=== PATIENT | male | born 1975 | race Caucasian/White ===

== ENCOUNTER 2017-09-09 11:39 | Observation (INO) | payer OTHER ==
--- NOTE | 2017-09-09 11:57 | EDPHY ---
H & P Smoking Status: Never smoked Time Seen by Provider: 09/09/17 11:39 HPI/ROS: CHIEF COMPLAINT: Near-syncope HISTORY OF PRESENT ILLNESS: 42-year-old male presents to the emergency department by ambulance after having a near syncopal episode with exertion. The patient states that he was hiking with a friend and was extremely short of breath, more so that he thought he should be with the type of exercise. He told his friend and they turned around and came back to the car. He then had a near syncopal episode. He states "I was fighting really hard for about 10 min to stay awake."He has no associated pain in his chest. He does not feel short of breath. He has a known history of an irregular tricuspid valve and was told when he was about age 52 that he would require surgery on his tricuspid valve. He denies a headache. No other reported trauma. REVIEW OF SYSTEMS: Constitutional: No fever, no chills. Eyes: No double or blurry vision. ENT: No sore throat. Respiratory: No cough, no shortness of breath. Cardiac: No chest pain. Gastrointestinal: No abdominal pain, vomiting or diarrhea. Genitourinary: No dysuria. Musculoskeletal: No neck or back pain. Skin: No rashes. Neurological: No headache. (Mahnaz Addison) Past Medical/Surgical History: Abnormal tricuspid valve (Mahnaz Addison) Social History: Lives in [place] (Mahnaz Addison) Physical Exam: General Appearance: Alert, no distress. 129/77. Heart rate 54, 100% on room air. Eyes: Pupils equal and round. Extraocular motions are all intact. ENT: Mouth: Mucous membranes moist. Respiratory: No wheezing, rhonchi, or rales, lungs are clear to auscultation. Cardiovascular: Regular rate and rhythm. Bradycardic. Gastrointestinal: Abdomen is soft and nontender, no masses, no rebound or guarding, bowel sounds normal. Neurological: Alert and oriented x 3, cranial nerves II through XII grossly intact Skin: Warm and dry, no rashes. Musculoskeletal: Nontender to palpate along the cervical, thoracic or lumbar spine. Neck is supple. Extremities: Full range of motion and no peripheral edema. Psychiatric: Patient is oriented X 3, there is no agitation. (Mahnaz Addison) Constitutional: Initial Vital Signs Temperature (C) 36.4 C 09/09/17 11:54 Heart Rate 54 L 09/09/17 11:54 Respiratory Rate 16 09/09/17 11:54 Blood Pressure 129/77 H 09/09/17 11:54 O2 Sat (%) 100 09/09/17 11:54 O2 Delivery Mode Room Air Allergies/Adverse Reactions: cat dander Allergy (Verified 09/09/17 15:08) mold Allergy (Verified 09/09/17 15:08) peanut Allergy (Verified 09/09/17 15:08) Home Medications: Medication Instructions Recorded Ascorbic Acid [Vitamin C 500 mg 1,000 mg PO DAILY 09/09/17 (*)] Cholecalciferol Vit D3 [Vitamin D3 1,000 units PO MOTH 09/09/17 (*)] Herbals/Supplements -Info Only 1 ea PO DAILY 09/09/17 Vitamin B Complex [Vitamin B 1 each PO DAILY 09/09/17 Complex (OTC)] Metoprolol Succinate [Toprol Xl] 12.5 mg PO DAILY #30 tab.er.24h 09/10/17 Medical Decision Making - Diagnostics Imaging: Discussed imaging studies w/ order desk caller Radiologist - Diagnostics EKG Interpretation: EKG interpreted by me shows sinus bradycardia with normal interval and axis. QRS is normal there is no significant ST elevation or depression. There appears to be a PAC present. Rate is 48 (Rik Chew) Imaging Results: CT angiogram of the chest reveals no evidence of PE. This was reported to me by Dr. Tawanda Patel at 4:25 p.m.. (Mahnaz Addison) ED Course/Re-evaluation: 42-year-old male presents to the emergency department after having a near syncopal episode. Laboratory studies were unremarkable. Troponin was normal. The case was discussed with Dr. Rik Chew, secondary supervising physician, who did not directly evaluate the patient but agrees with treatment and plan. The patient was monitored in the emergency department for several hours. He had an echocardiogram which revealed bicuspid tricuspid valve with mild to moderate aortic insufficiency. This was reported to me by Dr. Joshua Hutchinson, on- call pbx teacher. The patient was kept on patient monitor. He ambulated throughout the emergency department and his heart rate was labile from 70s up to 90s. His O2 saturation remained in 90s. The patient was short of breath with exertional activities and had a near syncopal episode. CT pulmonary angiogram which revealed no evidence of pulmonary embolism. I recommended admission to the hospital after having a near syncopal episode with exertional activity. The patient will be admitted to Dr. Vimal Osborne. (Mahnaz Addison) I did not see this patient while he was in the emergency department. However his care was discussed with the PA while the patient was in the department. I agree with treatment plan and management (Rik Chew) Differential Diagnosis: Shortness of breath including but not limited to pulmonary infectious process, COPD, asthma, pulmonary embolus and congestive heart failure. (Mahnaz Addison) - Data Points Laboratory Results: Laboratory Results 09/09/17 12:12 09/09/17 12:12 Departure - Departure Disposition: [facility] Inpatient Acute Clinical Impression: Near syncope Condition: Good
--- NOTE | 2017-09-09 12:04 | CPEKG ---
Heart Rate: 48 RR Interval: 1250 P-R Interval: 180 QRSD Interval: 98 QT Interval: 440 QTC Interval: 394 P Roslyn: 63 QRS Roslyn: 63 T Wave Roslyn: 51 EKG Severity - BORDERLINE ECG - EKG Impression: BRADYCARDIA WITH IRREGULAR RATE 41-62 Electronically Signed By: Rik Chew 09-Sep-2017 14:26:15
[2017-09-09 12:15] LABS: PLATELET COUNT 288 10^3/uL (150-400)
--- NOTE | 2017-09-09 15:16 | ECHO ---
[email or web address] [address] [address] Main: [phone] Fax: [email or web address] Echocardiogram Name: MITRA PIPER MR#: [id number] Study Date: 09/09/2017 Study Time: 02:24 PM Date of : 1975 Age: 42 year(s) Height: 190.5 cm (75 in.) Weight: 77.11 kg (170 lb.) BSA: 2.05 m2 Gender: Male Examination: Echo Indication: near syncope sith exertion Image Quality: Contrast: Requested by: Mahnaz Addison BP: / Heart Rate: Rhythm: Indication: near syncope sith exertion Procedure Staff Sap Specialist: Mahnaz Orourke [facility] Reading Physician: Joshua Hutchinson MD Requesting Provider: Conclusions: Normal size left ventricle. Normal global systolic LV function. EF is 63 %. No regional wall motion abnormality. Normal RV function. Bicuspid aortic valve. Mild to moderate aortic valve regurgitation. No aortic valve stenosis is present. The aorta is normal. Mildly dilated aortic root measuring 4.2 cm. There is no previous echocardiogram for comparison. Measurements: Chambers Valvular Assessment AV/MV Valvular Assessment TV/PV Normal Normal Normal Name Value Range Name Value Range Name Value Range Ao Aline (MM): 4.2 cm (2.2 cm-3.7 AV Vmax: 1.62 m/s (1 m/s-1.7 TR Vmax: 2.16 mm/s ( - ) cm) m/s) TR PGmax: 19 mmHg ( - ) IVSd (2D): 0.9 cm (0.6 cm-1.1 AV maxP mmHg ( - ) syst. PAP: 24 mmHg ( - ) cm) LVOT Vmax: 0.88 m/s (0.7 m/s-1.1 PV Vmax: 1.43 m/s (0.6 m/s-0.9 LVDd (2D): 4.9 cm (4.2 cm-5.9 m/s) m/s) cm) ЮЛИЯ (Vmax): 2.7 cm2 ( - ) PV PGmax: 8 mmHg ( - ) LVDs (2D): 3.3 cm (2.1 cm-4 AR (PHT): 579 ms ( - ) cm) MV E Vmax: 0.69 m/s ( - ) LVPWd (2D): 1.0 cm (0.6 cm-1 MV A Vmax: 0.42 m/s ( - ) cm) MV E/A: 1.64 ( - ) LVOTd 2.5 cm 2.5 cm mm LVEF (BP): 63 % (>=55 %) RVDd(2D): 3.2 cm (1.9 cm-3.8 cmmm) Patient: MITRA PIPER Study Date: 09/09/2017 Page 1 of 2 02:24 PM Continued Measurements: Chambers Valvular Assessment AV/MV Valvular Assessment TV/PV Name Value Name Value Name Value LADs Lon.2 cm MV DecTime: 176 m/s CVP (est.): 5 mmHg LA Area: 11.1 cm2 MV E' Septal: 0.11 m/s LA Volume: 20 ml MV E/E' Septal: 6.10 LA Volume Index: 9.8 ml/m2 MV E/E' Lateral: 5.40 AR Vmax: 4.11 cm/s Findings: Left Ventricle: Normal size left ventricle. No LV hypertrophy. Normal global systolic LV function. EF is 63 %. No regional wall motion abnormality. Normal diastolic LV function. Right Ventricle: Normal size right ventricle. Normal RV function. Left Atrium: The left atrium is normal in size. Right Atrium: The right atrium is normal in size. Mitral Valve: The mitral valve is normal in appearance and function. There is no mitral valve regurgitation. No mitral stenosis is present. Aortic Valve: Bicuspid aortic valve. Mild to moderate aortic valve regurgitation. No aortic valve stenosis is present. Tricuspid Valve: The tricuspid valve is normal in appearance and function. Trivial tricuspid valve regurgitation. Right ventricular systolic pressure measures 24mmHg. The pulmonary artery pressure is normal. Pulmonic Valve: The pulmonic valve is normal in appearance and function. There is no pulmonic regurgitation seen. Aorta: The aorta is normal. Mildly dilated aortic root measuring 4.2 cm. IVC: The IVC is normal sized. Pericardium: No pericardial effusion. (No Signature Object) Patient: MITRA PIPER Study Date: 09/09/2017 Page 2 of 2 02:24 PM [id number]
[2017-09-09] MEDS ORDERED: IOPAMIDOL (ISOVUE 370) 100 ML BTL IV ONE (15:59)
[2017-09-09] MEDS ORDERED: ONDANSETRON 4 MG/2 ML VIAL IVP PRN (16:07)
[2017-09-09] MEDS ORDERED: HYDROCODONE/APAP 5/325 TAB PO PRN (16:07)
[2017-09-09] MEDS ORDERED: ONDANSETRON DISINTEGRATING 4 MG TAB PO PRN (16:07)
[2017-09-09] MEDS ORDERED: ACETAMINOPHEN 325 MG TAB PO PRN (16:07)
--- NOTE | 2017-09-09 19:33 | PDGENHP ---
History and Physical - Chief Complaint near syncope - History of Present Illness 42 yo M with no real PMH presenting with c/o near syncope following a vigorous hike. He notes that he completed the hike without difficulty, but shortly thereafter developed diaphoresis, tunnel vision, ringing in his ears and the sense that he was going to lose consciousness. He states it took everything he had in him to not pass out. He denies associated chest pain or palpitations, he had no sob or nausea. He states after about 7-[address] way, he then developed associated tingling in his bilateral hands. This episode lasted approximately 15 minutes. He had a similar episode about 20 years ago but at that time he did syncope--he underwent testing at the hospital following that episode including echocardiogram and was found to have a bicuspid aortic valve but no other issues. In the ER it was noted that his heart rate was quite variable, ranging from 40 to the mid 70s. He states his usual resting heart rate is 40-50. Due to the significant variability it was recommended to him that he stay for further testing. He denies any symptoms with the change in heart rate. History Information - Allergies/Home Medication List Allergies/Adverse Reactions: cat dander Allergy (Verified 09/09/17 15:08) mold Allergy (Verified 09/09/17 15:08) peanut Allergy (Verified 09/09/17 15:08) Home Medications: Ascorbic Acid [Vitamin C 500 mg (*)] 1,000 mg PO DAILY 09/09/17 [Last Taken 12/20] Cholecalciferol Vit D3 [Vitamin D3 (*)] 1,000 units PO MOTH 09/09/17 [Last Taken 09/07/17] Herbals/Supplements -Info Only 1 ea PO DAILY 09/09/17 [Last Taken Unknown] Vitamin B Complex [Vitamin B Complex (OTC)] 1 each PO DAILY 09/09/17 [Last Taken 09/09/17] I have personally reviewed and updated: family history, medical history, social history, surgical history - Past Medical History no pertinent PMH - Surgical History Additional surgical history: wisdom tooth removal. lasik surgery - Family History Positive for: CAD (maternal grandfather in his 60s) - Social History Smoking Status: Never smoked Alcohol Use: Rarely Drug Use: None Review of Systems Review of Systems: ROS: 10pt was reviewed & negative except for what was stated in HPI & below Physical Exam Physical Exam: Temp Pulse Resp BP Pulse Ox 36.4 C 45 L 17 106/72 91 L 09/09/17 17:43 09/09/17 18:31 09/09/17 17:43 09/09/17 18:31 09/09/17 17:43 Constitutional: no apparent distress, appears nourished, not in pain Eyes: PERRL, anicteric sclera Ears, Nose, Mouth, Throat: moist mucous membranes Cardiovascular: regular rate and rhythym, no murmur, rub, or gallop, No edema Respiratory: no respiratory distress, no rales or rhonchi, clear to auscultation Gastrointestinal: normoactive bowel sounds Skin: warm, normal color Musculoskeletal: full muscle strength Neurologic: AAOx3 Psychiatric: interacting appropriately, not anxious, not encephalopathic Lab Data & Imaging Review 09/09/17 12:12 09/09/17 12:12 WBC 7.25 10^3/uL (3.80-9.50) 09/09/17 12:12 RBC 5.27 10^6/uL (4.40-6.38) 09/09/17 12:12 Hgb 16.0 g/dL (13.7-17.5) 09/09/17 12:12 Hct 45.9 % (40.0-51.0) 09/09/17 12:12 MCV 87.1 fL (81.5-99.8) 09/09/17 12:12 MCH 30.4 pg (27.9-34.1) 09/09/17 12:12 MCHC 34.9 g/dL (32.4-36.7) 09/09/17 12:12 RDW 12.0 % (11.5-15.2) 09/09/17 12:12 Plt Count 288 10^3/uL (150-400) 09/09/17 12:12 MPV 10.9 fL (8.7-11.7) 09/09/17 12:12 Neut % (Auto) 42.7 % (39.3-74.2) 09/09/17 12:12 Lymph % (Auto) 43.0 % (15.0-45.0) 09/09/17 12:12 [place] % (Auto) 5.4 % (4.5-13.0) 09/09/17 12:12 Eos % (Auto) 7.4 % (0.6-7.6) 09/09/17 12:12 Baso % (Auto) 1.2 % (0.3-1.7) 09/09/17 12:12 Nucleat RBC Rel Count 0.0 % (0.0-0.2) 09/09/17 12:12 Absolute Neuts (auto) 3.09 10^3/uL (1.70-6.50) 09/09/17 12:12 Absolute Lymphs (auto) 3.12 10^3/uL (1.00-3.00) H 09/09/17 12:12 Absolute Monos (auto) 0.39 10^3/uL (0.30-0.80) 09/09/17 12:12 Absolute Eos (auto) 0.54 10^3/uL (0.03-0.40) H 09/09/17 12:12 Absolute Basos (auto) 0.09 10^3/uL (0.02-0.10) 09/09/17 12:12 Absolute Nucleated RBC 0.00 10^3/uL (0-0.01) 09/09/17 12:12 Immature Gran % 0.3 % (0.0-1.1) 09/09/17 12:12 Immature Gran # 0.02 10^3/uL (0.00-0.10) 09/09/17 12:12 Sodium 146 mEq/L (135-145) H 09/09/17 12:12 Potassium 4.1 mEq/L (3.5-5.2) 09/09/17 12:12 Chloride 100 mEq/L (97-110) 09/09/17 12:12 Carbon Dioxide 26 mEq/l (22-31) 09/09/17 12:12 Anion Gap 20 mEq/L (8-16) H 09/09/17 12:12 BUN 14 mg/dL (7-23) 09/09/17 12:12 Creatinine 1.1 mg/dL (0.7-1.3) 09/09/17 12:12 Estimated GFR > 60 09/09/17 12:12 Glucose 117 mg/dL (70-100) H 09/09/17 12:12 Calcium 10.8 mg/dL (8.5-10.4) H 09/09/17 12:12 Phosphorus 2.4 mg/dL (2.5-4.5) L 09/09/17 12:12 Troponin I < 0.012 ng/mL (0.000-0.034) 09/09/17 18:16 Visualized and Interpreted imaging results: Yes Interpretation: chest CTA: no PE, normal Visualized and Interpreted EKG results: Yes EKG additional interpertation: bradycardia with irregular rate Assessment & Plan Assessment: Near syncope (Acute) 42 yo M with no significant PMH presenting with near syncope # near syncope: occurring in the setting of recent exertion and suspect this was largely vasovagal/orthostatic given description. In ER patient underwent CTA and echocardiogram, both of which were essentially normal. Will get treadmill stress in am for completeness and ask for cardiology consultation given sxs occurring with exercise. # arrythmia: patient with what appears to be sinus arrythmia with bradycardia and suspect this is a benign process however patient quite concerned--as above, will ask for cardiology to review in the morning. # hypernatremia: mild, suspect patient volume down on arrival. He is eating and drinking normally so this will likely resolve without intervention. # hyperglycemia: suspect stress response, will recheck BMP in am, if still elevated would obtain A1c # observation status Patient new to my care. Care plan reviewed with ER doctor including plans for treadmill in am.
[2017-09-10 06:28] VITALS: BP 96/53
--- NOTE | 2017-09-10 11:50 | PDCARCONS ---
Cardiology Consult Reason for Consult: Presyncope Chief Complaint: Presyncope Requesting Physician: Dr. Luz Briggs History of Present Illness: I am asked to visit with this very pleasant 42-year-old male by Dr. Luz Briggs. He was back along with a friend in the car, (passenger) after vigorous hike. He developed diaphoresis and lightheadedness. He denies any palpitations. He did not check his pulse. He did not have syncope. The whole episode lasted for 15 min. He did not try to lie down, denies any chest discomfort at that time. Echocardiogram done yesterday in the emergency department showed a bicuspid aortic valve. He did not know about this. I interviewed him and examined him in the treadmill room prior to performing is treadmill stress test. I talked to both him and his at length, treadmill technologist was present in the room at the time of this discussion. History Information - Allergies/Home Medication List Allergies/Adverse Reactions: cat dander Allergy (Verified 09/09/17 15:08) mold Allergy (Verified 09/09/17 15:08) peanut Allergy (Verified 09/09/17 15:08) Home Medications: Ascorbic Acid [Vitamin C 500 mg (*)] 1,000 mg PO DAILY 09/09/17 [Last Taken 12/20] Cholecalciferol Vit D3 [Vitamin D3 (*)] 1,000 units PO MOTH 09/09/17 [Last Taken 09/07/17] Herbals/Supplements -Info Only 1 ea PO DAILY 09/09/17 [Last Taken Unknown] Vitamin B Complex [Vitamin B Complex (OTC)] 1 each PO DAILY 09/09/17 [Last Taken 09/09/17] I have personally reviewed and updated: family history, medical history, social history, surgical history Past Medical History: - Past Medical History no pertinent PMH - Surgical History Reports: no pertinent surgical hx - Social History Smoking Status: Never smoked Alcohol Use: Rarely Drug Use: None Physical Exam Physical Exam: Temp Pulse Resp BP Pulse Ox 36.3 C 56 L 17 96/53 L 97 09/10/17 06:26 09/10/17 06:26 09/09/17 23:18 09/10/17 06:26 09/10/17 06:26 Constitutional: no apparent distress, appears nourished, not in pain Eyes: PERRL, EOMI Ears, Nose, Mouth, Throat: moist mucous membranes, hearing normal Cardiovascular: regular rate and rhythym, no murmur, rub, or gallop, other ( Significant pectus excavatum) Respiratory: no respiratory distress Gastrointestinal: normoactive bowel sounds, soft, non-tender abdomen, no palpable masses Genitourinary: no bladder fullness Skin: warm Musculoskeletal: full muscle strength, no muscle tenderness Neurologic: AAOx3 Psychiatric: interacting appropriately, not anxious, not encephalopathic Lab and Imaging 09/09/17 12:12 09/10/17 04:13 WBC 7.25 10^3/uL (3.80-9.50) 09/09/17 12:12 RBC 5.27 10^6/uL (4.40-6.38) 09/09/17 12:12 Hgb 16.0 g/dL (13.7-17.5) 09/09/17 12:12 Hct 45.9 % (40.0-51.0) 09/09/17 12:12 MCV 87.1 fL (81.5-99.8) 09/09/17 12:12 MCH 30.4 pg (27.9-34.1) 09/09/17 12:12 MCHC 34.9 g/dL (32.4-36.7) 09/09/17 12:12 RDW 12.0 % (11.5-15.2) 09/09/17 12:12 Plt Count 288 10^3/uL (150-400) 09/09/17 12:12 MPV 10.9 fL (8.7-11.7) 09/09/17 12:12 Neut % (Auto) 42.7 % (39.3-74.2) 09/09/17 12:12 Lymph % (Auto) 43.0 % (15.0-45.0) 09/09/17 12:12 [place] % (Auto) 5.4 % (4.5-13.0) 09/09/17 12:12 Eos % (Auto) 7.4 % (0.6-7.6) 09/09/17 12:12 Baso % (Auto) 1.2 % (0.3-1.7) 09/09/17 12:12 Nucleat RBC Rel Count 0.0 % (0.0-0.2) 09/09/17 12:12 Absolute Neuts (auto) 3.09 10^3/uL (1.70-6.50) 09/09/17 12:12 Absolute Lymphs (auto) 3.12 10^3/uL (1.00-3.00) H 09/09/17 12:12 Absolute Monos (auto) 0.39 10^3/uL (0.30-0.80) 09/09/17 12:12 Absolute Eos (auto) 0.54 10^3/uL (0.03-0.40) H 09/09/17 12:12 Absolute Basos (auto) 0.09 10^3/uL (0.02-0.10) 09/09/17 12:12 Absolute Nucleated RBC 0.00 10^3/uL (0-0.01) 09/09/17 12:12 Immature Gran % 0.3 % (0.0-1.1) 09/09/17 12:12 Immature Gran # 0.02 10^3/uL (0.00-0.10) 09/09/17 12:12 Sodium 143 mEq/L (135-145) 09/10/17 04:13 Potassium 4.2 mEq/L (3.5-5.2) 09/10/17 04:13 Chloride 105 mEq/L (97-110) 09/10/17 04:13 Carbon Dioxide 26 mEq/l (22-31) 09/10/17 04:13 Anion Gap 12 mEq/L (8-16) 09/10/17 04:13 BUN 13 mg/dL (7-23) 09/10/17 04:13 Creatinine 1.0 mg/dL (0.7-1.3) 09/10/17 04:13 Estimated GFR > 60 09/10/17 04:13 Glucose 99 mg/dL (70-100) 09/10/17 04:13 Calcium 9.3 mg/dL (8.5-10.4) 09/10/17 04:13 Phosphorus 2.4 mg/dL (2.5-4.5) L 09/09/17 12:12 Troponin I < 0.012 ng/mL (0.000-0.034) 09/09/17 18:16 Visualized and Interpreted EKG results: Yes EKG additional interpertation: Sinus bradycardia, sinus arrhythmia Echocardiogram: Sinus rhythm, sinus arrhythmia A/P Assessment: 1. Presyncope 2. Bicuspid aortic valve 3. Dilated ascending aorta, 4.2 cm Plan: 42-year-old male presented with post exercise presyncope. Episode happened about 7-10 minutes after exercise concluded. He did not have any palpitations or chest discomfort associated with that. He underwent exercise treadmill stress testing today which was negative for myocardial ischemia or sustained arrhythmias. His baseline ECG was normal. He has ruled out for myocardial infarction. Etiology of lightheadedness is unclear. Differential diagnosis includes neurocardiogenic syncope, exercise induced arrhythmias or hypotension. He did not have breakfast (per usual) prior to the strenuous hike, I have asked him to hydrate and eat well in the AM. He will have 1 month monitoring and then will follow up with either Dr. Simpson or Dr. Horvath at [facility] in 6 weeks. I have made arrangements for his follow-up. He is found to have bicuspid aortic valve and dilated ascending aorta. He will not tolerate higher doses of beta-blockers but I have talked to his hospitalist Dr. Luz Briggs who is going to start him on metoprolol succinate 12.5 mg a day. I have asked him not to do isometric exercises. I educated him on the implications of bicuspid aortic valve and dilated ascending aorta.
--- NOTE | 2017-09-10 13:05 | GDS ---
[f rep st] DISCHARGE SUMMARY DIAGNOSES: 1. Near syncope. 2. Sinus arrhythmia. 3. Intermittent PVCs. PROCEDURES DONE: 1. Chest and thoracic CT angiogram. Negative for pulmonary embolus. 2. Echocardiogram. Bicuspid aortic valve. 3. Exercise stress test. Negative for ischemia. CONSULTATIONS: Cardiology, Dr. Jaime Lara. HOSPITAL COURSE: The patient is a 42-year-old healthy man who had a near syncopal event after exerci sing. He was admitted to the hospital. The above procedures were done and he was monitored on telem etry which showed no arrhythmias, but he did have a sinus arrhythmia. He underwent an exercise tread mill as well as an echo and CT angiogram with the above findings. It was felt safe for him to be dis charged with followup at [facility]. They will schedule an event monitor to be done as an outpati ent and will see him after that is done. The patient did talk in detail about this plan with Dr. Lara and is in agreement. CONDITION ON DISCHARGE: Good. Vital signs are stable. DISCHARGE MEDICATIONS: Please see discharge medication form. FOLLOW UP: He will get an event monitor scheduled and will follow up with [facility] after it is done. /[id number]
== END 2017-09-10 14:15 | disposition home or self-care (01) ==
LOC: F2W 17:35
PROVIDERS: ADMIT Internal Medicine; ATTEND Internal Medicine
DX: R55 Syncope and collapse (principal); Q23.1 Congenital insufficiency of aortic valve; I77.810 Thoracic aortic ectasia
CPT/HCPCS: 71275; 93005; 93306; G0378; Q9967

== ENCOUNTER → 2017-11-30 | Outpatient (CLI) | payer OTHER ==
[~2017-11-30] MED LIST: IOPAMIDOL (ISOVUE 370) 100 ML BTL IV ONE
== END ==
LOC: FIMAGING 08:58
PROVIDERS: ATTEND Internal Medicine Cardiovascular Disease
DX: R51 Headache (principal); J01.80 Other acute sinusitis; Q23.1 Congenital insufficiency of aortic valve
CPT/HCPCS: Q9967